=== PATIENT | female | born 1940 | race Caucasian/White ===

== ENCOUNTER 2016-08-27 18:40 | Inpatient (IN) | payer MEDICARE, BC ==
[~2016-08-27] VITALS: Ht 160 cm; Wt 67.3 kg
[~2016-08-27 18:40] MED LIST: BACITRACIN 50,000 UNITS INJ IRRIG ONE; FENTANYL 100 MCG/2 ML AMP IV ONE; GLYCOPYRROLATE 0.2 MG/ML VIAL IV ONE; METOPROLOL 5 MG/5 ML VIAL IV ONE; NEOSTIGMINE 10 MG/10 ML VIAL IV ONE; PROPOFOL 20 ML PER ML IV ONE; ROCURONIUM 50 MG VIAL IV ONE
[2016-08-27] MEDS ORDERED: MORPHINE 4 MG/ML SYR ONE (18:57)
[2016-08-27] MEDS ORDERED: DILAUDID 1 MG/ML AMP ONE (19:30)
[2016-08-27] MEDS ORDERED: ONDANSETRON 4 MG VIAL ONE (20:26)
[2016-08-27] MEDS ORDERED: ONDANSETRON 4 MG VIAL IV PRN (21:30)
[2016-08-27] MEDS ORDERED: MAG HYDROX 30 ML UDC PO PRN (21:30)
[2016-08-27] MEDS ORDERED: ACETAMINOPHEN 325 MG TAB PO PRN (21:30)
[2016-08-27] MEDS ORDERED: ALU/MAG/SIM 30 ML UDC PO PRN (21:30)
[2016-08-27] MEDS ORDERED: SALINE FLUSH 10 ML FLUSH PRN (21:30)
[2016-08-27] MEDS ORDERED: BISACODYL 10 MG SUPP RECTAL PRN (21:30)
[2016-08-27] MEDS ORDERED: SODIUM CHLORIDE 0.9% 1,000 ML IV SCH (21:30)
[2016-08-27] MEDS ORDERED: BISACODYL EC 5 MG TAB PO PRN (21:30)
[2016-08-27 21:39] VITALS: BP_SYST 140; BP_SYST 145; RESP 18; TEMP 98.2
[2016-08-27] MEDS: DILAUDID 1 MG/ML AMP IV PRN ×2 (21:42→22:45)
[2016-08-27 22:52] VITALS: Ht 160 cm; Wt 67.3 kg
[2016-08-27 23:10] VITALS: BP_SYST 125; RESP 16; TEMP 98.1
[2016-08-27 23:43] VITALS: RESP 16
[2016-08-27] MEDS ORDERED: MIDAZOLAM 2 MG/2 ML INJ IV ONE (23:45)
[2016-08-27] MEDS ORDERED: LACT RINGERS 1,000 ML IV SCH (23:45)
[2016-08-27] MEDS ORDERED: Carvedilol 6.25 MG TAB PO ONE (23:45)
[2016-08-27] MEDS ORDERED: GLYCOPYRROLATE 0.2 MG/ML VIAL IV ONE (23:45)
[2016-08-28] VITALS (20 sets, daily range): BP systolic 114–172; RESP 10–38; TEMP 97.8–100.8
[2016-08-28] MEDS: ALPRAZOLAM 0.25 MG TAB PO PRN ×2 (00:08→08:17)
[2016-08-28] MEDS: DILAUDID 1 MG/ML AMP IV PRN ×8 (01:51→18:12)
[2016-08-28] MEDS: SODIUM CHLORIDE 0.9% FLUSH BAG 500 ML IV SCH (06:00)
[2016-08-28] MEDS: PANTOPRAZOLE 40 MG TAB PO SCH (07:06)
[2016-08-28] MEDS ORDERED: CEFAZOLIN 2,000 MG in SODIUM CHLORIDE 0.9% 100 ML IV ONE (07:10)
[2016-08-28] MEDS ORDERED: MIDAZOLAM 2 MG/2 ML INJ ONE (16:02)
[2016-08-28] MEDS ORDERED: MAG HYDROX 30 ML UDC PO PRN (17:30)
[2016-08-28] MEDS ORDERED: ONDANSETRON 4 MG VIAL IV PRN ×2 (17:30→17:50)
[2016-08-28] MEDS ORDERED: ONDANSETRON 4 MG TAB PO PRN (17:30)
[2016-08-28] MEDS ORDERED: SALINE FLUSH 10 ML FLUSH PRN (17:30)
[2016-08-28] MEDS ORDERED: MEPERIDINE 25 MG/ML IV PRN (17:50)
[2016-08-28] MEDS ORDERED: MORPHINE 4 MG/ML SYR IV PRN (17:50)
[2016-08-28] MEDS ORDERED: OXYCODONE 5 MG TAB PO PRN (17:50)
[2016-08-28] MEDS ORDERED: MORPHINE 2 MG/ML SYR IV PRN (17:50)
[2016-08-28] MEDS ORDERED: DILAUDID 1 MG/ML AMP ONE ×2 (17:51→18:10)
[2016-08-28] MEDS: D5-1/2-NS W/KCL 20MEQ/L 1,000 ML IV SCH (18:53)
[2016-08-28] MEDS: SERTRALINE 100 MG TAB PO SCH (19:00)
[2016-08-28] MEDS: Amoxicillin Tr 500 MG CAP PO SCH ×2 (19:00→21:02)
[2016-08-28] MEDS: KCL CR 10 MEQ TAB PO SCH (19:00)
[2016-08-28] MEDS: SALINE FLUSH 10 ML FLUSH SCH ×3 (19:44→20:00)
[2016-08-28] MEDS: CEFAZOLIN 2,000 MG in SODIUM CHLORIDE 0.9% 100 ML IV SCH (21:02)
[2016-08-28] MEDS: SENNA 8.6 MG TAB PO SCH (21:02)
[2016-08-28] MEDS: Carvedilol 6.25 MG TAB PO SCH (21:02)
[2016-08-28] MEDS: PRAVASTATIN 40 MG TAB PO SCH (21:02)
[2016-08-28] MEDS: DOCUSATE SOD 100 MG CAP PO SCH (21:02)
[2016-08-29] MEDS: ALPRAZOLAM 0.25 MG TAB PO PRN ×2 (01:49→18:11)
[2016-08-29 02:35] VITALS: BP_SYST 153; RESP 16; TEMP 98.4
[2016-08-29] MEDS: CEFAZOLIN 2,000 MG in SODIUM CHLORIDE 0.9% 100 ML IV SCH ×3 (03:36→15:32)
[2016-08-29] MEDS: SODIUM CHLORIDE 0.9% FLUSH BAG 500 ML IV SCH ×2 (05:14)
[2016-08-29] MEDS: PANTOPRAZOLE 40 MG TAB PO SCH (06:28)
[2016-08-29] MEDS: ENOXAPARIN 30 MG/0.3 ML SYR SUBQ SCH (06:28)
[2016-08-29] MEDS: SALINE FLUSH 10 ML FLUSH SCH ×4 (07:27→21:46)
[2016-08-29 07:30] VITALS: BP_SYST 148; RESP 16; TEMP 98.4
[2016-08-29] MEDS: MAG HYDROX 30 ML UDC PO SCH (08:42)
[2016-08-29] MEDS: Amoxicillin Tr 500 MG CAP PO SCH ×3 (08:43→21:46)
[2016-08-29] MEDS: POLYETHYLENE GLYCOL 17 GM PACKET PO SCH (08:43)
[2016-08-29] MEDS: Carvedilol 6.25 MG TAB PO SCH ×2 (08:43→21:46)
[2016-08-29] MEDS: MULTIVITS/MINERALS (THERAGRAN M) TAB PO SCH (08:43)
[2016-08-29] MEDS: SERTRALINE 100 MG TAB PO SCH (08:43)
[2016-08-29] MEDS: DOCUSATE SOD 100 MG CAP PO SCH ×2 (08:43→21:46)
[2016-08-29] MEDS: KCL CR 10 MEQ TAB PO SCH (08:44)
[2016-08-29] MEDS: SENNA 8.6 MG TAB PO SCH ×2 (08:44→21:46)
[2016-08-29] MEDS: D5-1/2-NS W/KCL 20MEQ/L 1,000 ML IV SCH (08:55)
[2016-08-29 11:34] VITALS: BP_SYST 137; RESP 16; TEMP 98.8
[2016-08-29] MEDS: LACTOBACILLUS ACIDOPH CAP PO SCH ×2 (15:31→21:46)
[2016-08-29] MEDS: CLOPIDOGREL 75 MG TAB PO SCH (15:31)
[2016-08-29 15:59] VITALS: BP_SYST 126; RESP 16; TEMP 98.2
[2016-08-29 19:07] VITALS: BP_SYST 145; RESP 16; TEMP 98.8
[2016-08-29] MEDS ORDERED: MONTELUKAST 10 MG TAB PO SCH (21:00)
[2016-08-29] MEDS: PRAVASTATIN 40 MG TAB PO SCH (21:46)
[2016-08-29 23:50] VITALS: BP_SYST 141; RESP 16; TEMP 98.8
[2016-08-30 02:30] VITALS: BP_SYST 148; RESP 18; TEMP 98.2
[2016-08-30] MEDS: DILAUDID 1 MG/ML AMP IV PRN (03:30)
[2016-08-30] MEDS: SODIUM CHLORIDE 0.9% FLUSH BAG 500 ML IV SCH ×2 (05:20)
[2016-08-30] MEDS: PANTOPRAZOLE 40 MG TAB PO SCH (06:12)
[2016-08-30] MEDS: ENOXAPARIN 30 MG/0.3 ML SYR SUBQ SCH (06:12)
[2016-08-30 07:23] VITALS: BP_SYST 148; RESP 20; TEMP 98.2
[2016-08-30] MEDS: MAG HYDROX 30 ML UDC PO SCH (07:27)
[2016-08-30] MEDS: SALINE FLUSH 10 ML FLUSH SCH ×2 (07:27→07:30)
[2016-08-30] MEDS: MULTIVITS/MINERALS (THERAGRAN M) TAB PO SCH (07:28)
[2016-08-30] MEDS: LACTOBACILLUS ACIDOPH CAP PO SCH (07:28)
[2016-08-30] MEDS: SENNA 8.6 MG TAB PO SCH (07:28)
[2016-08-30] MEDS: KCL CR 10 MEQ TAB PO SCH (07:28)
[2016-08-30] MEDS: DOCUSATE SOD 100 MG CAP PO SCH (07:28)
[2016-08-30] MEDS: Carvedilol 6.25 MG TAB PO SCH (07:28)
[2016-08-30] MEDS: SERTRALINE 100 MG TAB PO SCH (07:28)
[2016-08-30] MEDS: CLOPIDOGREL 75 MG TAB PO SCH (07:28)
[2016-08-30] MEDS: Amoxicillin Tr 500 MG CAP PO SCH (07:28)
[2016-08-30] MEDS: POLYETHYLENE GLYCOL 17 GM PACKET PO SCH (07:29)
[2016-08-30 11:56] VITALS: BP_SYST 149; RESP 20; TEMP 97.5
[2016-08-30 12:33] VITALS: BP_SYST 149; RESP 20; TEMP 97.5
[2016-08-30] MEDS ORDERED: Carvedilol 6.25 MG TAB PO SCH (21:00)
== END 2016-08-30 14:59 | DRG 481 ==
LOC: ER 18:40 → EMR 19:56 → ENPENDDIS 19:56 → 2NO 21:02
PROVIDERS: ADMIT Family Medicine Addiction Medicine; ATTEND Family Medicine Addiction Medicine
PROC: 0QS604Z Reposition Right Upper Femur with Internal Fixation Device, Open Approach (ICD-10-PCS; principal; 2016-08-28 16:38)
DX: S72.141A Displaced intertrochanteric fracture of right femur, initial encounter for closed fracture (principal); N39.0 Urinary tract infection, site not specified; E87.1 Hypo-osmolality and hyponatremia; W18.30XA Fall on same level, unspecified, initial encounter; Y93.H3 Activity, building and construction; Y92.015 Private garage of single-family (private) house as the place of occurrence of the external cause; I10 Essential (primary) hypertension; E78.5 Hyperlipidemia, unspecified; F17.210 Nicotine dependence, cigarettes, uncomplicated; Z79.01 Long term (current) use of anticoagulants; Z86.718 Personal history of other venous thrombosis and embolism; K21.9 Gastro-esophageal reflux disease without esophagitis; Z66 Do not resuscitate
CPT/HCPCS: 36415; 51702; 71010; 76000; 80048; 80053; 81001; 82553; 83880; 84439; 84443; 84484; 85014; 85018; 85025; 85610; 85730; 93005; 94799; 96374; 96375; 99223; 99232; 99233; 99239